=== PATIENT | female | born 1955 | race Hispanic/Latino ===

== ENCOUNTER 2019-11-19 15:34 | Emergency (ER) | payer OTHER, MEDICARE ==
[~2019-11-19 15:34] MED LIST: AEC81 PO; ATOR10 PO; GLIP10TA9 PO; LOSA25TA41 PO; METF-446 PO
[2019-11-19 17:02] LABS: BASOPHILS % (AUTO) 0.2 % (0.0-5.0); EOSINOPHILS % (AUTO) 5.1 % (0.0-8.0); HEMATOCRIT 24.9 % (36-48); LYMPHOCYTES % (AUTO) 14.9 % (21.0-51.0); MEAN CORPUSCULAR HEMOGLOBIN 31.7 pg (27.0-33.0); MEAN CORPUSCULAR HGB CONC 31.3 g/dL (32.0-36.0); MEAN CORPUSCULAR VOLUME 101.2 fL (79-99); MONOCYTES % (AUTO) 6.1 % (3.0-13.0); NEUTROPHILS % (AUTO) 73.4 % (40.0-77.0); PLATELET COUNT (AUTO) 216 K/uL (130-400); RED BLOOD CELL COUNT(AUTO) 2.46 MIL/uL (4.00-5.50); RED CELL DISTRIBUTION WIDTH 14.7 % (11.0-15.5); WHITE BLOOD COUNT (AUTO) 8.9 K/uL (4.8-10.8)
[2019-11-19 17:12] LABS: CREATININE 1.6 mg/dL (0.5-1.5); POTASSIUM 5.8 mmol/L (3.5-5.1)
[2019-11-19 17:17] LABS: ALBUMIN 2.7 g/dL (3.5-5.0); BILIRUBIN,TOTAL 0.2 mg/dL (0.2-1.0); TOTAL PROTEIN, SERUM 7.2 g/dL (6.0-8.3)
[2019-11-19 17:20] LABS: INR 0.98 (0.85-1.15); PARTIAL THROMBOPLASTIN TIME 30.5 SEC (26.3-35.5); PROTHROMBIN TIME 10.6 SEC (9.6-11.6)
== END 2019-11-19 17:53 | disposition home or self-care (01) ==
LOC: EDH 15:34
DX: K62.89 Other specified diseases of anus and rectum (principal); L30.9 Dermatitis, unspecified; I10 Essential (primary) hypertension; E11.9 Type 2 diabetes mellitus without complications; E78.00 Pure hypercholesterolemia, unspecified; K21.9 Gastro-esophageal reflux disease without esophagitis; M19.90 Unspecified osteoarthritis, unspecified site; Z88.6 Allergy status to analgesic agent; Z79.899 Other long term (current) drug therapy
CPT/HCPCS: 36415; 80053; 82270; 85025; 85610; 85730

== ENCOUNTER 2020-01-22 10:02 | Inpatient (IN) | payer OTHER, MEDICARE ==
[~2020-01-22] VITALS: Ht 167.6 cm; Wt 130.6 kg
[2020-01-22 10:39] LABS: BASOPHILS % (AUTO) 0.2 % (0.0-5.0); EOSINOPHILS % (AUTO) 1.4 % (0.0-8.0); LYMPHOCYTES % (AUTO) 11.3 % (21.0-51.0); MEAN CORPUSCULAR HEMOGLOBIN 31.4 pg (27.0-33.0); MEAN CORPUSCULAR HGB CONC 31.2 g/dL (32.0-36.0); MEAN CORPUSCULAR VOLUME 100.6 fL (79-99); MONOCYTES % (AUTO) 5.5 % (3.0-13.0); NEUTROPHILS % (AUTO) 80.7 % (40.0-77.0); PLATELET COUNT (AUTO) 279 K/uL (130-400); RED BLOOD CELL COUNT(AUTO) 1.56 MIL/uL (4.00-5.50); RED CELL DISTRIBUTION WIDTH 15.8 % (11.0-15.5); WHITE BLOOD COUNT (AUTO) 18.7 K/uL (4.8-10.8)
[2020-01-22 10:44] LABS: CREATININE 1.4 mg/dL (0.5-1.5); POTASSIUM 5.5 mmol/L (3.5-5.1)
[2020-01-22 10:48] LABS: ALBUMIN 2.2 g/dL (3.5-5.0); BILIRUBIN,TOTAL 0.2 mg/dL (0.2-1.0); TOTAL PROTEIN, SERUM 6.1 g/dL (6.0-8.3)
[2020-01-22 10:57] LABS: HEMATOCRIT 15.7 % (36-48)
[2020-01-22 11:53] LABS: INR 0.98 (0.85-1.15); PROTHROMBIN TIME 10.5 SEC (9.6-11.6)
[2020-01-22 11:54] LABS: PARTIAL THROMBOPLASTIN TIME 25.1 SEC (26.3-35.5)
[2020-01-22] MEDS ORDERED: SODIUM CHLORIDE 0.9% 250 ML IV ONE (12:59)
[2020-01-22] MEDS ORDERED: ONDANSETRON HCL 4 MG/2 ML VIAL IVP PRN (14:30)
[2020-01-22] MEDS ORDERED: ACETAMINOPHEN 325 MG TAB PO PRN (14:30)
[2020-01-22] MEDS ORDERED: ACETAMINOPHEN 650 MG SUPPOSITORY RC PRN (14:30)
[2020-01-22] MEDS ORDERED: TEMAZEPAM 15 MG CAPSULE PO PRN (14:30)
[2020-01-22] MEDS ORDERED: CLONIDINE HCL 0.1 MG TABLET PO PRN (14:30)
[2020-01-22] MEDS: SODIUM CHLORIDE 0.9% 1000ML 1,000 ML IV SCH ×2 (14:30→22:30)
[2020-01-22 16:00] LABS: CREATINE KINASE, TOTAL 35 U/L (21-232); MYOGLOBIN 66 ng/mL (10-92); TROPONIN I < 0.04 ng/mL (0.00-0.06)
[2020-01-22] MEDS: INSULIN HUMULIN R 100 UNIT/ML 3ML SQ SCH ×2 (16:30→20:59)
[2020-01-22 17:21] VITALS: BP 124/64
--- NOTE | 2020-01-22 17:53 | NUR ---
PT ARRIVED TO THE UNIT IN GOOD CONDITION BY BED WITH 2ND UNIT OF PRBC'S INFUSING. PT A/O X4 WITH NO CURRENT COMPLAINTS OF PAIN OR RESP DIFFICULTY. C/O CONSTIPATION. CALM AND PLEASANT
[2020-01-22 20:00] VITALS: BP 111/40
[2020-01-22 20:10] LABS: HEMATOCRIT 22.1 % (36-48)
[2020-01-22 20:25] LABS: INR 0.98 (0.85-1.15); PROTHROMBIN TIME 10.5 SEC (9.6-11.6)
[2020-01-22] MEDS: FAMOTIDINE 20MG TAB 20 MG TAB PO SCH (20:31)
[2020-01-22 20:34] LABS: CREATINE KINASE, TOTAL 34 U/L (21-232); MYOGLOBIN 54 ng/mL (10-92); TROPONIN I < 0.04 ng/mL (0.00-0.06)
[2020-01-22 20:45] VITALS: BP 115/73
[2020-01-23] VITALS: BP 104/42
[2020-01-23 04:00] VITALS: BP 99/40
[2020-01-23 04:54] LABS: HEMATOCRIT 21.6 % (36-48); MEAN CORPUSCULAR HGB CONC 33.3 g/dL (32.0-36.0); MEAN CORPUSCULAR VOLUME 93.1 fL (79-99); NUCLEATED RED BLOOD CELLS 0.2 % (0.0-0.19); PLATELET COUNT (AUTO) 254 K/uL (130-400); RED BLOOD CELL COUNT(AUTO) 2.32 MIL/uL (4.00-5.50); RED CELL DISTRIBUTION WIDTH 15.9 % (11.0-15.5)
[2020-01-23 04:57] LABS: B-TYPE NATRIURETIC PEPTIDE 71 pg/mL (0-100)
[2020-01-23 05:03] LABS: EOSINOPHILS % (MANUAL) 3 % (1-6); LYMPHOCYTES % (MANUAL) 15 % (22-44); MONOCYTES % (MANUAL) 5 % (2-9); SEGMENTED NEUTROPHILS % 77 % (40-70)
[2020-01-23 05:04] LABS: MAN.DIFF COMMENT-IMPRESSION MANUAL DIFFERENTIAL
[2020-01-23 05:26] LABS: CARBON DIOXIDE 19 mmol/L (21-32); CHLORIDE 107 mmol/L (101-111); CREATINE KINASE, TOTAL 31 U/L (21-232); CREATININE 1.3 mg/dL (0.5-1.5); GLOMERULAR FILTR. RATE CALC 44 mL/min (>60); GLUCOSE,RANDOM 100 mg/dL (70-105); MYOGLOBIN 66 ng/mL (10-92); PHOSPHORUS 4.9 mg/dL (2.5-4.9); POTASSIUM 5.3 mmol/L (3.5-5.1); SODIUM SERUM 136 mmol/L (136-145); THYROID STIMULATING HORMONE 5.18 uIU/mL (0.36-3.74); TROPONIN I < 0.04 ng/mL (0.00-0.06); UREA NITROGEN, BLOOD 36 mg/dL (7-18)
[2020-01-23] MEDS: INSULIN HUMULIN R 100 UNIT/ML 3ML SQ SCH ×4 (06:17→21:00)
[2020-01-23] MEDS: SODIUM CHLORIDE 0.9% 1000ML 1,000 ML IV SCH ×3 (06:30→21:31)
[2020-01-23 08:00] VITALS: BP 102/40
[2020-01-23 08:29] LABS: HEMATOCRIT 21.9 % (36-48)
[2020-01-23] MEDS: FOLIC ACID 1 MG TABLET PO SCH (09:00)
[2020-01-23] MEDS: ASCORBIC ACID 500 MG TAB PO SCH (09:00)
[2020-01-23] MEDS: FERROUS SULFATE 325 MG TABLET.DR PO SCH (09:00)
[2020-01-23] MEDS: POLYETHYLENE GLYCOL 3350 17 GM POWD.PACK PO SCH (09:00)
[2020-01-23 09:58] LABS: LACTATE DEHYDROGENASE 130 U/L (81-234)
[2020-01-23 12:00] VITALS: BP 121/46
--- NOTE | 2020-01-23 14:56 | NUR ---
PING NOTE/IA MET WITH PATIENT IN ROOM. PER PATIENT, IS A ASSISTED RESIDENT OF [facility], DEPENDENT WITH ADLS, HAS WHEELCHAIR, WALKER, CANE AND SHOWER CHAIR AT HOME, AND OK TO RETURN TO EXAMINING [facility]AIR [facility] CARE AT [facility]. Addendum: 01/23/20 at 1457 by JOJO COREA RN CM Amended: Links added.
[2020-01-23 16:00] VITALS: BP 116/46
[2020-01-23 20:44] VITALS: BP 141/60
[2020-01-23] MEDS: FAMOTIDINE 20MG TAB 20 MG TAB PO SCH (21:06)
[2020-01-23 22:14] LABS: HEMATOCRIT 23.7 % (36-48)
[2020-01-23] MEDS ORDERED: SODIUM CHLORIDE 0.9% 250 ML IV ONE (23:14)
[2020-01-24] VITALS (7 sets, daily range): BP systolic 112–134; BP diastolic 43–52
--- NOTE | 2020-01-24 05:16 | NUR ---
RECEIVED REPORT FROM FAUSTINA RAMIRES RN
[2020-01-24 05:40] LABS: BASOPHILS % (AUTO) 0.3 % (0.0-5.0); EOSINOPHILS % (AUTO) 3.6 % (0.0-8.0); HEMATOCRIT 23.3 % (36-48); LYMPHOCYTES % (AUTO) 15.6 % (21.0-51.0); MEAN CORPUSCULAR HEMOGLOBIN 30.8 pg (27.0-33.0); MEAN CORPUSCULAR VOLUME 93.2 fL (79-99); MONOCYTES % (AUTO) 5.5 % (3.0-13.0); PLATELET COUNT (AUTO) 248 K/uL (130-400); RED CELL DISTRIBUTION WIDTH 15.8 % (11.0-15.5); WHITE BLOOD COUNT (AUTO) 11.5 K/uL (4.8-10.8)
[2020-01-24] MEDS: LEVOTHYROXINE 25 MCG TABLET PO SCH (05:50)
[2020-01-24 06:00] LABS: CREATININE 1.2 mg/dL (0.5-1.5)
[2020-01-24] MEDS: INSULIN HUMULIN R 100 UNIT/ML 3ML SQ SCH ×4 (06:06→19:59)
[2020-01-24] MEDS: POLYETHYLENE GLYCOL 3350 17 GM POWD.PACK PO SCH (09:56)
[2020-01-24] MEDS: FOLIC ACID 1 MG TABLET PO SCH (09:57)
[2020-01-24] MEDS: FERROUS SULFATE 325 MG TABLET.DR PO SCH (09:57)
[2020-01-24] MEDS: ASCORBIC ACID 500 MG TAB PO SCH (09:57)
[2020-01-24] MEDS: SODIUM CHLORIDE 0.9% 1000ML 1,000 ML IV SCH ×2 (09:59→14:30)
[2020-01-24 10:36] LABS: HEMATOCRIT 23.7 % (36-48)
--- NOTE | 2020-01-24 11:00 | NUR ---
CARRIE GONZALES IN TO SEE PT, AWARE THAT PT.HAS CONTINUED WITH VAGINAL BLEEDING. CARDIOLOGY CONSULT REQUESTED FOR SURGICAL CLEARANCE
--- NOTE | 2020-01-24 12:30 | NUR ---
DR. COLE IN TO SEE PT., CARDIAC CLEARANCE ORDERED IN CASE PROGRAM OFFICER NEEDS TO DO A SURG. PROCEDURE.
[2020-01-24 16:07] LABS: HEMATOCRIT 24.5 % (36-48)
--- NOTE | 2020-01-24 17:50 | NUR ---
RECEIVED ORDERS FROM CARRIE GONZALES NOW,CONSENT/ SCHEDULE PT. FOR D/C TOMORROW, CLEAR LIQUIDS NOW, NPO AFTER MN. ORDER FAXED TO HS. COMMUNICATED INFORMATION TO PT. AND SHE IS IN FULL AGREEMENT, ALSO SPOKE TO HER DAUGHTER.
--- NOTE | 2020-01-24 18:42 | NUR ---
CONSENT FOR D/C SIGNED BY PATIENT. REPORT GIVEN TO INCOMING NURSE.
[2020-01-24] MEDS: FAMOTIDINE 20MG TAB 20 MG TAB PO SCH (19:53)
[2020-01-24 22:01] LABS: HEMATOCRIT 23.6 % (36-48)
[2020-01-25] VITALS (18 sets, daily range): BP systolic 110–148; BP diastolic 42–79
[2020-01-25] MEDS: INSULIN HUMULIN R 100 UNIT/ML 3ML SQ SCH ×4 (04:12→19:59)
[2020-01-25] MEDS: LEVOTHYROXINE 25 MCG TABLET PO SCH (04:12)
[2020-01-25] MEDS: SODIUM CHLORIDE 0.9% 1000ML 1,000 ML IV SCH ×3 (05:05→22:28)
[2020-01-25 05:52] LABS: CREATININE 1.2 mg/dL (0.5-1.5); POTASSIUM 4.4 mmol/L (3.5-5.1)
[2020-01-25 05:55] LABS: PROTHROMBIN TIME 10.7 SEC (9.6-11.6)
[2020-01-25 05:57] LABS: PARTIAL THROMBOPLASTIN TIME 27.8 SEC (26.3-35.5)
[2020-01-25] MEDS: FOLIC ACID 1 MG TABLET PO SCH (09:00)
[2020-01-25] MEDS: POLYETHYLENE GLYCOL 3350 17 GM POWD.PACK PO SCH (09:00)
[2020-01-25] MEDS: FERROUS SULFATE 325 MG TABLET.DR PO SCH (09:00)
[2020-01-25] MEDS: ASCORBIC ACID 500 MG TAB PO SCH (09:00)
[2020-01-25] MEDS ORDERED: LIDOCAINE PF 2% 5ML ABBOJECT ONE (11:26)
[2020-01-25] MEDS ORDERED: SUCCINYLCHOLINE 200MG/10ML SYR ONE (11:26)
[2020-01-25] MEDS ORDERED: DEXAMETHASONE SOD PHOSPHATE 10MG/ML 1ML VIAL ONE (11:26)
[2020-01-25] MEDS ORDERED: NEOSTIGMINE 5MG/5ML SYR IV ONE (11:27)
[2020-01-25] MEDS ORDERED: PROPOFOL 10 MG/ML 20ML VIAL IV ONE (11:27)
[2020-01-25] MEDS ORDERED: ONDANSETRON HCL 4 MG/2 ML VIAL ONE (11:27)
[2020-01-25] MEDS ORDERED: GLYCOPYRROLATE 1 MG/5 ML SYRINGE ONE (11:27)
[2020-01-25] MEDS ORDERED: ROCURONIUM 10MG/1ML SYR 10 MG/ML ML ONE (11:27)
[2020-01-25] MEDS ORDERED: MIDAZOLAM HCL 1 MG/ML 2ML VIAL ONE (11:27)
[2020-01-25] MEDS ORDERED: FENTANYL CITRATE PF 50 MCG/1 ML 2ML VIAL ONE ×2 (11:28→13:27)
[2020-01-25] MEDS ORDERED: OXYTOCIN 10 USP UNITS/ML ONE (13:00)
[2020-01-25] MEDS ORDERED: FUROSEMIDE 10 MG/ML 4ML VIAL ONE (13:20)
--- NOTE | 2020-01-25 19:22 | NUR ---
DR. ARCHIBALD WAS CALLED AND ASKED ABOUT THE RESUMPTION OF ANTICOAGULANT THERAPY DUE TO THE FACT THAT HE IS THE SUERGEON THAT PERFORMED THE DILATION AND CURETAGGE. HE TOLD ME TO ASK THE PRIMARY DOCTOR FOR WHATEVER ANTICOAGULATION THERAPY THEY WANTED AND TO START IN THE MORNING OF 01/26/2020 AT 0900.
[2020-01-25] MEDS: FAMOTIDINE 20MG TAB 20 MG TAB PO SCH (19:58)
[2020-01-25] MEDS ORDERED: PHARMACY COMMUNICATION MISC SCH (22:00)
[2020-01-26] VITALS (8 sets, daily range): BP systolic 74–144; BP diastolic 41–72
[2020-01-26] MEDS: LEVOTHYROXINE 25 MCG TABLET PO SCH (05:34)
[2020-01-26] MEDS: INSULIN HUMULIN R 100 UNIT/ML 3ML SQ SCH ×4 (05:35→20:51)
[2020-01-26 05:51] LABS: HEMATOCRIT 23.5 % (36-48); MEAN CORPUSCULAR HEMOGLOBIN 30.8 pg (27.0-33.0); MEAN CORPUSCULAR HGB CONC 32.8 g/dL (32.0-36.0); RED BLOOD CELL COUNT(AUTO) 2.5 MIL/uL (4.00-5.50); RED CELL DISTRIBUTION WIDTH 15.2 % (11.0-15.5); WHITE BLOOD COUNT (AUTO) 9.7 K/uL (4.8-10.8)
[2020-01-26 06:19] LABS: CREATININE 1.2 mg/dL (0.5-1.5); POTASSIUM 4.7 mmol/L (3.5-5.1)
[2020-01-26] MEDS: ENOXAPARIN SODIUM 40 MG/0.4 ML SYRINGE SQ SCH ×2 (09:00→20:51)
[2020-01-26] MEDS: FERROUS SULFATE 325 MG TABLET.DR PO SCH (13:04)
[2020-01-26] MEDS: FOLIC ACID 1 MG TABLET PO SCH (13:05)
[2020-01-26] MEDS: ASCORBIC ACID 500 MG TAB PO SCH (13:05)
[2020-01-26] MEDS: ESTROGENS,CONJUGATED 0.625 MG TAB PO SCH (13:05)
[2020-01-26] MEDS: POLYETHYLENE GLYCOL 3350 17 GM POWD.PACK PO SCH (13:05)
[2020-01-26] MEDS ORDERED: GLIPIZIDE XL 5MG TAB PO SCH (14:10)
[2020-01-26 17:08] LABS: HEMATOCRIT 24.3 % (36-48)
[2020-01-26] MEDS: FAMOTIDINE 20MG TAB 20 MG TAB PO SCH (20:50)
[2020-01-26] MEDS: SODIUM CHLORIDE 0.9% 1000ML 1,000 ML IV SCH (20:53)
[2020-01-27 04:00] VITALS: BP 112/49
[2020-01-27] MEDS: INSULIN HUMULIN R 100 UNIT/ML 3ML SQ SCH ×4 (05:20→20:24)
[2020-01-27 05:44] LABS: HEMATOCRIT 22.8 % (36-48); MEAN CORPUSCULAR HEMOGLOBIN 30.5 pg (27.0-33.0); MEAN CORPUSCULAR VOLUME 95.4 fL (79-99); RED BLOOD CELL COUNT(AUTO) 2.39 MIL/uL (4.00-5.50); RED CELL DISTRIBUTION WIDTH 15.7 % (11.0-15.5); WHITE BLOOD COUNT (AUTO) 7.8 K/uL (4.8-10.8)
[2020-01-27] MEDS: LEVOTHYROXINE 25 MCG TABLET PO SCH (05:49)
[2020-01-27 06:12] LABS: CREATININE 1.4 mg/dL (0.5-1.5); POTASSIUM 4.4 mmol/L (3.5-5.1)
[2020-01-27 07:49] VITALS: BP 134/56
[2020-01-27] MEDS ORDERED: GLIPIZIDE XL 5MG TAB PO SCH (08:00)
--- NOTE | 2020-01-27 09:00 | NUR ---
CM NOTE/DCP [facility] PER CARL[facility] AT [facility], PATIENT OK TO RETURN TO [facility]. EMS FORMS FAXED AND FLAGGED IN CHART FOR NURSE USE. PRIMARY NURSE, TIM KO, AWARE OF PLAN. COVID FORM AND ASSESSMENT FORM EMAILED TO [facility]LOS REQUESTED.
[2020-01-27] MEDS: ASCORBIC ACID 500 MG TAB PO SCH (09:54)
[2020-01-27] MEDS: POLYETHYLENE GLYCOL 3350 17 GM POWD.PACK PO SCH (09:54)
[2020-01-27] MEDS: FOLIC ACID 1 MG TABLET PO SCH (09:54)
[2020-01-27] MEDS: FERROUS SULFATE 325 MG TABLET.DR PO SCH (09:54)
[2020-01-27] MEDS: ESTROGENS,CONJUGATED 0.625 MG TAB PO SCH (09:54)
[2020-01-27] MEDS: ENOXAPARIN SODIUM 40 MG/0.4 ML SYRINGE SQ SCH ×2 (09:55→20:18)
[2020-01-27 11:25] VITALS: BP 131/52
[2020-01-27 16:29] VITALS: BP 134/39
--- NOTE | 2020-01-27 17:43 | NUR ---
HNR NO ANSWER AND UNABLE TO LEAVE A MESSAGE, WILL TRY TO CALL AGAIN TO GIVE REPORT
--- NOTE | 2020-01-27 18:05 | NUR ---
HNR THIS IS THE 2ND ATTEMPT TO CALL TO GIVE REPORT. I AM UNABLE TO LM.
[2020-01-27] MEDS: SODIUM CHLORIDE 0.9% 1000ML 1,000 ML IV SCH (18:07)
--- NOTE | 2020-01-27 18:23 | NUR ---
HNR [address] RD ATTEMPT TO GIVE REPORT, NO ANSWER.
--- NOTE | 2020-01-27 19:15 | NUR ---
HNR GAVE REPORT TO ANDERS PENALOZA RN, PT IS A/A X 4 VS STABLE. EMS HAS BEEN CALLED TO TRANSFER.
[2020-01-27 20:00] VITALS: BP 111/40
[2020-01-27] MEDS: FAMOTIDINE 20MG TAB 20 MG TAB PO SCH (20:18)
--- NOTE | 2020-01-27 22:00 | NUR ---
EMS HERE TO TRANSFER PATIENT TO [facility]. PATIENT AAOX3, NO ACUTE DISTRESS NOTED, DENIES ANY DISCOMFORT. TELEMETRY DAWN REMOVED AND 20ga PIV TO RIGHT HAND REMOVED.
== END 2020-01-27 22:00 | DRG 744 ==
LOC: EDH 10:02 → EDHIP 14:23 → 3DH 17:19
PROVIDERS: ADMIT Internal Medicine Critical Care Medicine; ATTEND Internal Medicine Critical Care Medicine
PROC: 30233N1 Transfusion of Nonautologous Red Blood Cells into Peripheral Vein, Percutaneous Approach (ICD-10-PCS; 2020-01-22)
PROC: 0UDB7ZX Extraction of Endometrium, Via Natural or Artificial Opening, Diagnostic (ICD-10-PCS; principal; 2020-01-25 10:55)
DX: D25.9 Leiomyoma of uterus, unspecified (principal); Z68.42 Body mass index [BMI] 45.0-49.9, adult; D68.59 Other primary thrombophilia; D64.9 Anemia, unspecified; E78.5 Hyperlipidemia, unspecified; I50.9 Heart failure, unspecified; I11.0 Hypertensive heart disease with heart failure; E78.00 Pure hypercholesterolemia, unspecified; N95.0 Postmenopausal bleeding; E66.01 Morbid (severe) obesity due to excess calories; R32 Unspecified urinary incontinence; K21.9 Gastro-esophageal reflux disease without esophagitis; M19.90 Unspecified osteoarthritis, unspecified site; R53.1 Weakness; E11.9 Type 2 diabetes mellitus without complications; D72.829 Elevated white blood cell count, unspecified; E03.9 Hypothyroidism, unspecified; Z20.828 Contact with and (suspected) exposure to other viral communicable diseases; Z74.01 Bed confinement status; Z79.899 Other long term (current) drug therapy; Z79.84 Long term (current) use of oral hypoglycemic drugs; Z79.82 Long term (current) use of aspirin; Z79.01 Long term (current) use of anticoagulants; Z88.5 Allergy status to narcotic agent
CPT/HCPCS: 36415; 36430; 71045; 74176; 80048; 80053; 82330; 82550; 82607; 82728; 82948; 83540; 83550; 83615; 83735; 83874; 83880; 83883; 84100; 84132; 84145; 84443; 84484; 85014; 85018; 85025; 85027; 85378; 85384; 85610; 85730; 86334; 86850; 86870; 86900; 86901; 86905; 86922; 87040; 87426; 93005; 93306; 93356; 93970; G0378; J0330; J1100; J1650; J1815; J1940; J2001; J2250; J2405; J2590; J2704; J2710; J3010; J3490; J7030; J7050; J7120; P9016; U0003

== ENCOUNTER → 2021-08-16 | Outpatient (CLI) | payer OTHER, MEDICARE | END | disposition home or self-care (01) | LOC: RAH 14:27 | PROVIDERS: ATTEND Orthopaedic Surgery Sports Medicine | DX: S72.461D Displaced supracondylar fracture with intracondylar extension of lower end of right femur, subsequent encounter for closed fracture with routine healing (principal); X58.XXXD Exposure to other specified factors, subsequent encounter | CPT/HCPCS: 73700 ==

== ENCOUNTER → 2021-10-24 | Outpatient (CLI) | payer OTHER, MEDICARE | END | disposition home or self-care (01) | LOC: RAH 14:18 | PROVIDERS: ATTEND Physician Assistant | DX: N28.89 Other specified disorders of kidney and ureter (principal); R19.04 Left lower quadrant abdominal swelling, mass and lump; M79.89 Other specified soft tissue disorders; D36.7 Benign neoplasm of other specified sites | CPT/HCPCS: 74176 ==

== ENCOUNTER 2023-06-12 11:05 | Emergency (ER) | payer OTHER, MEDICARE ==
[~2023-06-12 11:05] MED LIST changes: -AEC81 PO; +ASCO500T19 PO; -ATOR10 PO; +ATOR10TA69 PO; +AUD IH; +BENZ-39 PO; +CALC-1158 PO; +CHOL-34 PO; +CYAN-106 PO; +FAMO20TA8 PO; +FERR-82 PO; +FLUT16H NASAL; +FOLI0.8T2 PO; +FOLI1 PO; +FURO40TA7 PO; -GLIP10TA9 PO; +INSLAN SQ; +LEVO25TA54 PO; +LORA10TA7 PO; -LOSA25TA41 PO; -METF-446 PO; +METO5 PO; +PANT40TA PO; +POLY17PO4 PO; +SERT-438 PO; +SODI650T PO
[2023-06-12 12:55] LABS: BASOPHILS # (AUTO) 0.02 K/uL (0.00-0.20); BASOPHILS % (AUTO) 0.3 % (0.0-5.0); EOSINOPHILS % (AUTO) 2.8 % (0.0-8.0); HEMATOCRIT 26.9 % (36-48); IMMATURE GRANULOCYTE ABSOLUTE 0.06 K/uL (0-1); LYMPHOCYTES # (AUTO) 1.3 K/uL (1.0-4.8); LYMPHOCYTES % (AUTO) 17.6 % (21.0-51.0); MEAN CORPUSCULAR HEMOGLOBIN 34.4 pg (27.0-33.0); MEAN CORPUSCULAR HGB CONC 33.5 g/dL (32.0-36.0); MEAN CORPUSCULAR VOLUME 102.7 fL (79-99); MONOCYTES # (AUTO) 0.5 K/uL (0.1-1.0); MONOCYTES % (AUTO) 6.4 % (3.0-13.0); NEUTROPHILS # (AUTO) 5.2 K/uL (1.8-7.7); NEUTROPHILS % (AUTO) 72.1 % (40.0-77.0); PLATELET COUNT (AUTO) 154 K/uL (130-400); RED BLOOD CELL COUNT(AUTO) 2.62 MIL/uL (4.00-5.50); RED CELL DISTRIBUTION WIDTH 13.9 % (11.0-15.5); WHITE BLOOD COUNT (AUTO) 7.2 K/uL (4.8-10.8)
[2023-06-12 13:07] LABS: INR <= 0.93 (0.85-1.15); PROTHROMBIN TIME 10.7 SEC (9.6-11.6)
[2023-06-12 13:10] LABS: ALBUMIN 2.3 g/dL (3.5-5.0); BILIRUBIN,TOTAL 0.4 mg/dL (0.2-1.0); POTASSIUM 4.4 mmol/L (3.5-5.1); TOTAL PROTEIN, SERUM 6.6 g/dL (6.0-8.3)
[2023-06-12 13:33] LABS: B-TYPE NATRIURETIC PEPTIDE 69 pg/mL (0-100)
[2023-06-12 16:29] VITALS: BP 128/52; PULSE 60; RESP 16; O2SAT 98
== END 2023-06-12 16:15 | disposition home or self-care (01) ==
LOC: EDH 11:05
DX: I10 Essential (primary) hypertension (principal); E11.9 Type 2 diabetes mellitus without complications; E78.00 Pure hypercholesterolemia, unspecified; F32.A Depression, unspecified; D25.9 Leiomyoma of uterus, unspecified; M19.90 Unspecified osteoarthritis, unspecified site; Z79.899 Other long term (current) drug therapy; Z88.5 Allergy status to narcotic agent; Z98.890 Other specified postprocedural states; Z90.89 Acquired absence of other organs
CPT/HCPCS: 36415; 74176; 80053; 83605; 83690; 83880; 84145; 84484; 85025; 85610; 85730; 87040; 93005

== ENCOUNTER → 2023-09-04 | Outpatient (CLI) | payer OTHER | END | disposition home or self-care (01) | LOC: OIH 07-30 10:34 | PROVIDERS: ATTEND Internal Medicine Cardiovascular Disease | DX: Z13.6 Encounter for screening for cardiovascular disorders (principal) | CPT/HCPCS: 75571 ==

== ENCOUNTER → 2024-02-14 | Outpatient (CLI) | payer OTHER, MEDICARE ==
--- NOTE | 2024-02-14 16:13 | HMCIMG ---
CT LOW EXT W/O CONTRAST HISTORY: Right femur displaced fracture COMPARISON: None TECHNIQUE: Multiple sequential axial images of the right femur were obtained including post processing sagittal and coronal reconstruction images. Patient was not given contrast through intravenous route. FINDINGS: Orthopedic fixation plates and screws are seen traversing the mid distal femur area. Fracture displacement are seen involving the distal femur of indeterminate age. Bony osteopenia is seen. The study is limited due to patient's large body habitus. Irregularity is seen of the right femoral neck with right femoral neck fracture not excluded. IMPRESSION: 1. Findings as described above. CT was performed with one or more following dose reduction techniques: automated exposure control, adjustment of the mA and kv according to patient's size, or use of a iterative reconstruction technique.
== END | disposition home or self-care (01) ==
LOC: RAH 12:23
PROVIDERS: ATTEND Orthopaedic Surgery Sports Medicine
DX: S72.451K Displaced supracondylar fracture without intracondylar extension of lower end of right femur, subsequent encounter for closed fracture with nonunion (principal); X58.XXXD Exposure to other specified factors, subsequent encounter
CPT/HCPCS: 73700

== ENCOUNTER → 2024-07-14 | Outpatient (CLI) | payer OTHER, MEDICAID ==
--- NOTE | 2024-07-14 16:31 | HMCIMG ---
Findings: No fluid collections or masses are seen. Significantly, there is no evidence of hematoma. No increased fluid throughout the visualized tissue planes is identified. No lymphadenopathy is identified. Impression: No evidence of hematoma or fluid collections or other abnormalities.
== END | disposition home or self-care (01) ==
LOC: RAH 15:12
PROVIDERS: ATTEND Internal Medicine
DX: R22.9 Localized swelling, mass and lump, unspecified (principal)
CPT/HCPCS: 76882

== ENCOUNTER → 2024-09-04 | Outpatient (CLI) | payer OTHER, MEDICAID ==
--- NOTE | 2024-09-04 17:48 | HMCIMG ---
EXAM: CT Abdomen and Pelvis without Intravenous Contrast CLINICAL HISTORY: 69-year-old female with left upper quadrant abdominal swelling TECHNIQUE: Axial computed tomography images of the abdomen and pelvis without intravenous contrast. Dose reduction technique was used including one or more of the following: automated exposure control, adjustment of mA and kV according to patient size, and/or iterative reconstruction. CONTRAST: Without; COMPARISON: CT ABD/PEL from 05/20/2023, 00:38 AM FINDINGS: LUNG BASES: No basilar airspace consolidation or pleural effusion. LIVER: Unremarkable. GALLBLADDER AND BILE DUCTS: Unremarkable. No calcified stone. No ductal dilation. PANCREAS: Unremarkable. SPLEEN: Unremarkable. ADRENAL GLANDS: Unremarkable. KIDNEYS, URETERS, AND BLADDER: No hydronephrosis or nephrolithiasis. Negative for obstructive ureteral stone. No ureteral or bladder calculi. STOMACH AND BOWEL: No obstruction. No wall thickening. No CT evidence of colitis or acute diverticulitis. Large amount of stool in the sigmoid colon. APPENDIX: No CT evidence for appendicitis. PERITONEUM: No free fluid. No free air. LYMPH NODES: No lymphadenopathy. REPRODUCTIVE: Nonspecific uterine fat stranding. Multiple calcified uterine fibroids. VASCULATURE: No aortic aneurysm. ABDOMINAL WALL AND SOFT TISSUES: Unremarkable. BONES: Moderate degenerative changes of the lumbar spine. No fracture or suspicious osseous abnormality. IMPRESSION: 1. No acute findings. 2. Multiple calcified uterine fibroids and nonspecific uterine fat stranding, similar to prior CT ABD/PEL from 05/20/2023, 00:38 AM. 3. Large amount of stool in the sigmoid colon. /[place]
== END | disposition home or self-care (01) ==
LOC: RAH 10:55
PROVIDERS: ATTEND Surgery
DX: D25.9 Leiomyoma of uterus, unspecified (principal); R19.02 Left upper quadrant abdominal swelling, mass and lump; M47.816 Spondylosis without myelopathy or radiculopathy, lumbar region
CPT/HCPCS: 74176